=== PATIENT | male | born 1965 ===

== ENCOUNTER 2017-07-05 16:38 | Emergency (ER) | payer SELFPAY ==
--- NOTE | 2017-07-05 16:55 | UC ---
Lower Extremity/Ankle HPI - HPI Summary HPI Summary: Pt presents with right ankle and calf pain. He tells me that about 1 week ago he was walking and inverted his right ankle. The next day had some pain and bruising to his lateral ankle and midfoot. This is improving. Over the last 3-4 days he has had some calf heaviness and aching. He contacted a provider friend of his who said to get checked for a blood clot. Currently denies fever, chills , cough, SOB, chest pain. No hx of DVT or clotting dz. - History of Current Complaint Stated Complaint: ANKLE PAIN Time Seen by Provider: 07/05/17 16:55 Hx Obtained From: Patient Onset/Duration: Sudden Onset Severity Initially: Moderate Severity Currently: Mild Pain Intensity: 2 Pain Scale Used: 0-10 Numeric Aggravating Factor(s): Standing, Ambulation Alleviating Factor(s): Rest, Elevation Able to Bear Weight: Yes - Allergies/Home Medications Allergies/Adverse Reactions: Allergies Allergy/AdvReac Type Severity Reaction Status Date / Time aspirin Allergy Intermediate asthmatic Verified 07/05/17 17:22 dust mites Allergy Severe asthma Uncoded 07/05/17 17:22 Home Medications: Home Medications NK [No Home Medications Reported] 07/05/17 [History Confirmed 07/05/17] PMH/Surg Hx/FS Hx/Imm Hx - Additional Past Medical History Additional PMH: None Previously Healthy: Yes - Surgical History Surgical History: None - Family History Known Family History: Positive: None - Social History Occupation: Employed Full-time Lives: With Family Alcohol Use: Occasionally Substance Use Type: None Smoking Status (MU): Never Smoked Tobacco Review of Systems Constitutional: Negative Skin: Negative Respiratory: Negative Cardiovascular: Negative Gastrointestinal: Negative Motor: Negative Neurovascular: Negative Musculoskeletal: Other: - Right ankle pain. Right calf pain Neurological: Negative Psychological: Negative All Other Systems Reviewed And Are Negative: Yes Physical Exam - Summary Physical Exam Summary: GENERAL: NAD. WDWN. No pain distress. SKIN: No rashes, sores, lesions, or open wounds. NECK: Supple. Nontender. No lymphadenopathy. CHEST: No accessory muscle use. Breathing comfortably and in no distress. CV: RRR. Without m/r/g. Pulses intact PT and DP. Brisk cap refill. MSK: Right ankle: Mild TTP over lateral malleolus. Strength 5/5. No edema or obvious bony deformities. Negative talar tilt. No increased laxity. Negative [place] test. Mild TTP when squeezing right calf. NEURO: Alert. Sensations intact and symmetric B/L LEs PSYCH: Age appropriate behavior. Triage Information Reviewed: Yes Lower Extremity Course/Dx - Course Course Of Treatment: XR: REPORT AND. IMPRESSION: Small talocrural joint effusion and moderate soft tissue swelling over the. lateral malleolus. Negative for fracture or malalignment. Preserved joint spaces. does not have ultrasound available this evening, I advised the pt to seek further evaluation and likely ultrasound in the ED for his right calf pain. - Differential Dx/Diagnosis Provider Diagnoses: Right ankle sprain. Right calf pain Discharge - Sign-Out/Discharge Documenting (check all that apply): Discharge/Admit/Transfer - Discharge Plan Condition: Stable Disposition: HOME Patient Education Materials: Leg Cramps (ED) Referrals: Non Staff,Doctor [Primary Care Provider] - Additional Instructions: Please go to the [facility] ER for further evaluation of your right calf pain - for likely ultrasound to rule out a clot. - Billing Disposition and Condition Condition: STABLE Disposition: HOME
[2017-07-05 17:19] VITALS: BP 143/88
--- NOTE | 2017-07-05 18:15 | RAD ---
Indication: RIGHT ankle pain following inversion injury one week ago. Comparison: No relevant prior exams available on the [facility] PACS for comparison. Technique: AP, mortise, and lateral views RIGHT ankle. REPORT AND IMPRESSION: Small talocrural joint effusion and moderate soft tissue swelling over the lateral malleolus. Negative for fracture or malalignment. Preserved joint spaces.
== END 2017-07-05 18:30 | disposition home or self-care (01) ==
LOC: UCEAST 16:38
DX: S93.401A Sprain of unspecified ligament of right ankle, initial encounter (principal); X58.XXXA Exposure to other specified factors, initial encounter; Y93.01 Activity, walking, marching and hiking; Y92.9 Unspecified place or not applicable; M79.661 Pain in right lower leg; Z88.6 Allergy status to analgesic agent
CPT/HCPCS: 99202; G0463

== ENCOUNTER 2017-07-07 09:30 | Emergency (ER) | payer SELFPAY ==
--- NOTE | 2017-07-07 11:09 | ED ---
Lower Extremity - HPI Summary HPI Summary: Patient presents with right calf pain after attaining a right ankle sprain 10 days ago. He reports he was hiking when he misstepped over a root and twisted his right ankle. This was quite swollen and bruised however he's been able to bear weight and denies numbness tingling or weakness here. He may ambulate without pain but has developed soreness and pain into his calf which she thought would have resolved by now however has not. He's tried ibuprofen for the course of his injury and has completed this. Can't say that it's helped or hurt calf pain. His calf is not swollen but is tender to touch. Denies previous clots, hormone therapy, smoking, travel with prolonged sitting, history of cancer, family history of bleeding or clotting disorders. He was sent [facility] by [facility] for DVT rule out. He had been seen there on the an ankle x-ray was performed which reveals "small talocrural joint effusion and moderate soft tissue swelling over the lateral malleolus. Negative for fracture or malalignment. Preserved joint spaces" - History of Current Complaint Chief Complaint: EDSoftTissueLowExtr Stated Complaint: RT LEG PAIN Time Seen by Provider: 07/07/17 10:05 Hx Obtained From: Patient Pain Intensity: 3 - Allergies/Home Medications Allergies/Adverse Reactions: Allergies Allergy/AdvReac Type Severity Reaction Status Date / Time aspirin Allergy Intermediate asthmatic Verified 07/07/17 09:34 dust mites Allergy Severe asthma Uncoded 07/07/17 09:34 PMH/Surg Hx/FS Hx/Imm Hx Previously Healthy: Yes Endocrine/Hematology History: Denies: Hx Anticoagulant Therapy, Hx Blood Disorders, Hx Unexplained Bleeding , Hx Coagulopothy Respiratory History: Reports: Hx Asthma - uses inhaler nightly Infectious Disease History: No Infectious Disease History: Denies: Traveled Outside the [place] in Last 30 Days - Family History Known Family History: Positive: None - Social History Occupation: Employed Full-time - [employer] Alcohol Use: Occasionally Hx Substance Use: No Substance Use Type: Reports: None Hx Tobacco Use: No Smoking Status (MU): Never Smoked Tobacco Review of Systems Constitutional: Negative Negative: Fatigue Negative: Chest Pain Negative: Shortness Of Breath Gastrointestinal: Negative Positive: no symptoms reported Positive: Myalgia Skin: Negative Neurological: Negative Psychological: Normal All Other Systems Reviewed And Are Negative: Yes Physical Exam Triage Information Reviewed: Yes Vital Signs On Initial Exam: Initial Vitals Temp Pulse Resp BP Pulse Ox 98 F 64 14 136/77 97 07/07/17 09:34 07/07/17 09:34 07/07/17 09:34 07/07/17 09:34 07/07/17 09:34 Vital Signs Reviewed: Yes Appearance: Positive: Well-Appearing, No Pain Distress, Well-Nourished Skin: Positive: Warm, Skin Color Reflects Adequate Perfusion, Dry - Healing ecchymosis over her right ankle and foot and toes in dependent areas; edema about the Rt lateral malleolus Head/Face: Positive: Normal Head/Face Inspection Eyes: Positive: EOMI ENT: Positive: Hearing grossly normal Respiratory/Lung Sounds: Positive: Breath Sounds Present Cardiovascular: Positive: Pulses are Symmetrical in both Upper and Lower Extremities. Negative: Leg Edema Left, Leg Edema Right - Positive Homans Musculoskeletal: Positive: Strength/ROM Intact, Pain @ - Right calf tenderness with palpation - no acute weakness appreciated Neurological: Positive: Normal, Sensory/Motor Intact, Alert, Oriented to Person Place, Time, CN Intact II-III Psychiatric: Positive: Normal Diagnostics - Vital Signs Vital Signs Temp Pulse Resp BP Pulse Ox 07/07/17 09:34 98 F 64 14 136/77 97 - Laboratory Result Diagrams: 07/07/17 12:39 07/07/17 12:39 Lab Statement: Any lab studies that have been ordered have been reviewed, and results considered in the medical decision making process. Lower Extremity Course/Dx - Course Course Of Treatment: Right lower extremity ultrasound: "Vein thrombus of the posterior tibial veins. Superficial thrombophlebitis". Discussed options of Coumadin versus Xarelto as well as risks and benefits of both. Patient is opting to start Xarelto and agrees to follow-up with PCP. Reviewed danger signs and symptoms of when to return to the emergency department. Patient agrees with plan. 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 Spoke w/ nursing there and they will not see pt for f/u. He will go to [facility] for f/u in 2 weeks for medical follow-up and again at 21 days to refill med at 20 mg daily. He reports will be flying back to [place] at the end of July so will not establish with an official PCP in [facility]. - Diagnoses Provider Diagnoses: Right leg DVT Discharge - Sign-Out/Discharge Documenting (check all that apply): Discharge/Admit/Transfer - Discharge Plan Condition: Stable Disposition: HOME Prescriptions: Rivaroxaban TAB(*) [Xarelto 15 mg(*)] 15 mg PO BID #41 tab Patient Education Materials: Deep Vein Thrombosis (ED) Referrals: No Primary Care Phys,NOPCP [Primary Care Provider] - Additional Instructions: You appear to have a clot in the deep venous system of your right lower leg. He had decided to treat this with Xarelto, a medication that will prevent her clot from getting any larger. Your body will reabsorb this clot over time so it is important that you take this medication until that is complete. You have been started on a 15 mg dose that he will take 2 times a day for 21 days. After this time, he may transition to a 20 mg dose daily for the duration of 3- 6 months -this will be decided by your PCP. It is important that she follow up with a PCP in 2 weeks to make sure you're not having any reactions to the medication etc. since he do not have a PCP and only plan to be here until the end of July, you may follow-up at the [facility]. Address and phone number given below. [address] [place] [address] It is important to avoid contact sports or any other activities that may increase her risk for falling. *If in the meantime you develop chest pain, shortness of breath, fever, bloody cough, back pain, increased heart rate, return to the emergency department. - Billing Disposition and Condition Condition: STABLE Disposition: HOME
--- NOTE | 2017-07-07 11:15 | RAD ---
INDICATION: Pain and swelling. COMPARISON: Calf pain following recent trauma TECHNIQUE: Duplex interrogation of the right lowerextremity was performed. FINDINGS: Deep veins: The common femoral, great saphenous, profunda femoris, proximal, mid, and distal deep femoral, popliteal, and peroneal veins are patent. There is normal compressibility, augmentation, and phasic flow. However, there is deep venous thrombosis/occlusion of both posterior tibial veins of the calf with superficial thrombophlebitis of the small saphenous at the knee. Superficial veins: Small saphenous superficial phlebitis at the knee. Popliteal fossa:There is no evidence of a popliteal cyst. Soft tissues:There are no soft tissue abnormalities. IMPRESSION: CALF VEIN THROMBOSIS OF THE POSTERIOR TIBIAL VEINS. SUPERFICIAL THROMBOPHLEBITIS
[2017-07-07 12:50] LABS: ABS Basophils 0.1 10^3/ul (0-0.2); ABS Eosinophils 0.5 10^3/ul (0-0.6); ABS Lymphocytes 1.9 10^3/ul (1.0-4.8); ABS Monocytes 0.5 10^3/ul (0-0.8); ABS Neutrophils 3.9 10^3/ul (1.5-7.7); ABS Nucleated RBC 0 10^3/ul; Eosinophil % 7.5 % (0-6); Hematocrit 40 % (42-52); Hemoglobin 13.7 g/dl (14.0-18.0); Mean Corpuscular HGB Conc 34 g/dl (31-36); Mean Corpuscular Hemoglobin 31 pg (27-31); Mean Corpuscular Volume 91 fL (80-94); Mean Platelet Volume 8.7 um3 (7.4-10.4); Nucleated Red Blood Cells % 0; Platelet Count 158 10^3/ul (150-450); Red Blood Count 4.42 10^6/ul (4.0-5.4); Red Cell Distribution Width 13 % (10.5-15); White Blood Count 6.8 10^3/ul (3.5-10.8)
[2017-07-07 13:00] LABS: INR 0.93 (0.77-1.02)
[2017-07-07 13:14] LABS: EGFR Non-African American 82.6 (>60)
[2017-07-07] MEDS ORDERED: Rivaroxaban TAB(*) 15 MG PO ONE (13:25)
[2017-07-07] MEDS ORDERED: Apixaban* 5 MG TAB PO ONE (13:44)
[2017-07-07 14:01] VITALS: BP 134/96
[2017-07-07] MEDS ORDERED: Apixaban* 5 MG TAB PO SCH (21:00)
== END 2017-07-07 14:02 | disposition home or self-care (01) ==
LOC: ED 09:30
DX: I82.401 Acute embolism and thrombosis of unspecified deep veins of right lower extremity (principal); R20.0 Anesthesia of skin
CPT/HCPCS: 36415; 80053; 85025; 85610; 99282

== ENCOUNTER 2017-07-16 18:03 | Emergency (ER) | payer SELFPAY ==
[2017-07-16 18:21] VITALS: BP 120/80
--- NOTE | 2017-07-16 18:37 | ED ---
Lower Extremity - HPI Summary HPI Summary: 52 year male presents for recheck of DVT. dvt is in right leg and was diagnosed over a week ago. He has been taking eliquis as prescribed. He had not has not missed a dose. He denies any chest pain or shortness of breath. He denies any blood in his stool. He denies any history nosebleeds. He states the pain and swelling have been improving. He states he has no pain currently. He is concerned because he is going to fly in a couple days and wants to make sure he can. He denies any palpitations. He is not a smoker. He has been on eliquis for over week. He will be following up with primary in [place] where he is from. - History of Current Complaint Chief Complaint: UCLowerExtremity Stated Complaint: SWOLLEN LEG Time Seen by Provider: 07/16/17 18:13 Pain Intensity: 0 - Allergies/Home Medications Allergies/Adverse Reactions: Allergies Allergy/AdvReac Type Severity Reaction Status Date / Time aspirin Allergy Intermediate asthmatic Verified 07/16/17 18:21 dust mites Allergy Severe asthma Uncoded 07/07/17 09:34 Home Medications: Home Medications Inhaler* PRN 07/16/17 [History] PMH/Surg Hx/FS Hx/Imm Hx Endocrine/Hematology History: Denies: Hx Anticoagulant Therapy, Hx Blood Disorders, Hx Unexplained Bleeding Respiratory History: Reports: Hx Asthma - uses inhaler nightly Infectious Disease History: No Infectious Disease History: Denies: Traveled Outside the [place] in Last 30 Days - Family History Known Family History: Positive: None - Social History Alcohol Use: Rare Hx Substance Use: No Substance Use Type: Reports: None Hx Tobacco Use: No Smoking Status (MU): Never Smoked Tobacco Review of Systems Negative: Fever Negative: Chest Pain Negative: Shortness Of Breath Positive: Myalgia - right calf pain All Other Systems Reviewed And Are Negative: Yes Physical Exam Triage Information Reviewed: Yes Vital Signs On Initial Exam: Initial Vitals Temp Pulse Resp BP Pulse Ox 98.2 F 67 16 120/80 97 07/16/17 18:14 07/16/17 18:14 07/16/17 18:14 07/16/17 18:14 07/16/17 18:14 Vital Signs Reviewed: Yes Appearance: Positive: Well-Appearing Skin: Positive: Warm, Dry Head/Face: Positive: Normal Head/Face Inspection Eyes: Positive: Normal, Conjunctiva Clear Respiratory/Lung Sounds: Positive: Clear to Auscultation, Breath Sounds Present Cardiovascular: Positive: Normal, RRR Musculoskeletal: Positive: Strength/ROM Intact - right leg, Other - good pulses , sensation grossly intact. Negative: Edema Right Neurological: Positive: Normal Psychiatric: Positive: Normal Diagnostics - Vital Signs Vital Signs Temp Pulse Resp BP Pulse Ox 07/16/17 18:14 98.2 F 67 16 120/80 97 - Laboratory Lab Statement: Any lab studies that have been ordered have been reviewed, and results considered in the medical decision making process. Lower Extremity Course/Dx - Course Course Of Treatment: 52 year male presents for recheck of DVT. He has been taking eliquis as prescribed. He had not has not missed a dose. He denies any chest pain or shortness of breath. He denies any blood in his stool. He denies any history nosebleeds. He states the pain and swelling have been improving. He states he has no pain currently. He is concerned because he is going to fly in a couple days and wants to make sure he can. He denies any palpitations. He is not a smoker. He has been on eliquis for over week. He will be following up with primary in [place] where he is from. on exam no edema noted. lungs CTA. heart RRR. explained no monitoring needed with eliquis. stated is safe to travel with such as is on the eliquis. told if anything change to go to ED. told to follow up with primary when returns home. patient understand and agrees with plan. - Diagnoses Differential Diagnosis/HQI/PQRI: Positive: DVT, Sprain, Strain Provider Diagnoses: DVT (deep venous thrombosis) Discharge - Sign-Out/Discharge Documenting (check all that apply): Discharge/Admit/Transfer - Discharge Plan Condition: Good Disposition: HOME Referrals: No Primary Care Phys,NOPCP [Primary Care Provider] - Additional Instructions: Follow up with primary when return home continue eliquis as prescribed Return to ED if develop any chest pain or shortness of breath or any new or worsening symptoms - Billing Disposition and Condition Condition: GOOD Disposition: HOME
== END 2017-07-16 18:40 | disposition home or self-care (01) ==
LOC: UCEAST 18:03
DX: I82.401 Acute embolism and thrombosis of unspecified deep veins of right lower extremity (principal); Z79.01 Long term (current) use of anticoagulants; J45.909 Unspecified asthma, uncomplicated; Z88.6 Allergy status to analgesic agent
CPT/HCPCS: 99211; G0463